=== PATIENT | female | born 1955 | race Caucasian/White ===

== ENCOUNTER 2017-12-05 05:33 | Inpatient (IN) ==
[2017-12-05] MEDS ORDERED: Chlorhexidine 4% Topical 120 APPLIC/120 ML Bottle TOPICAL SCH (06:00)
[2017-12-05] MEDS ORDERED: Vancomycin Inj 1,000 MG in Sodium Chlor 0.9% Inj 250 ML IV.SIG SCH (06:00)
[2017-12-05] MEDS ORDERED: Metoprolol Tartrate 25 MG Tablet PO ONE (06:04)
[2017-12-05] MEDS ORDERED: Chlorhexidine Gluconate 2% 1 Pack (2 Cloths) TOPICAL ONE (06:04)
[2017-12-05] MEDS ORDERED: Bupivacaine/Epinephrine 0.5% Inj 50 ML Vial ONE (06:58)
[2017-12-05] MEDS ORDERED: Sodium Chlor 0.9% Inj 500 ML IV.SIG SCH (07:00)
[2017-12-05] MEDS ORDERED: ceFAZolin 2 GM Premix Inj 2 GM/50 ML PIGGYBACK IV.SIG SCH (07:00)
[2017-12-05] MEDS ORDERED: Sodium Chlor 0.9% Inj 40 ML, Bupivacaine Liposo PF 1.3% Inj 20 ML P-ARTICULR SCH ×2 (07:30)
[2017-12-05] MEDS ORDERED: TRANEXAMIC ACID IV.SIG SCH (07:30)
[2017-12-05] MEDS ORDERED: Labetalol HCl Inj 100 MG/20 ML Vial IV.CONT ONE (07:30)
[2017-12-05] MEDS ORDERED: SODIUM CHLOR 0.9% IV.SIG SCH (07:30)
[2017-12-05] MEDS ORDERED: Lidocaine PF 1% Inj 5 ML Syringe OTHER ONE (07:30)
[2017-12-05] MEDS ORDERED: Post-op Orders (for Pharmacy) OTHER STA (09:08)
[2017-12-05] MEDS ORDERED: Bisacodyl 10 MG Supp RECTAL PRN (09:08)
--- NOTE | 2017-12-05 09:13 | P.OP ---
- Preoperative Diagnosis (1) Osteoarthritis of left hip - Postoperative Diagnosis (1) Osteoarthritis of left hip Date of procedure: 12/05/17 Procedure: Left total hip replacement arthroplasty, direct anterior exposure Anesthesia: GETA Surgeon: Faizan Rand MD Trouble Locater: ISABELLA Chambers Operation and Findings: EBL: 400 cc INDICATION: This patient presents with significant hip pain related to severe osteoarthritis of the left hip. The patient has had a previous right total hip replacement arthroplasty for the same condition on the contralateral hip.. Despite extensive conservative care this patient continues to be painful and now presents for surgical treatment. NOTE: Pennie Chambers PA-C was present for the entire surgical procedure as my middle school assistant principal. In my medical opinion her skill and care was necessary for the proper management of this patient. COMPONENTS: COMPANY: [employer] CUP: Ponce, 48 mm, 100 series, gription surface LINER: Altrx 32 mm, neutral STEM: Corail, standard offset, size 13, hydroxyapatite-coated HEAD: 32 mm, +1, ceramic, 12/14 taper PROCEDURE: This patient was brought to the operating room and anesthetized in the supine position and positioned on the fracture table with both legs held extended. The left hip and leg was scrubbed with alcohol followed by Hibiclens followed by ChloraPrep and draped sterilely. Antibiotics were given within routine time window and a timeout was done. A 4 inch incision was made starting 2 cm distal and 2 cm lateral to the anterior superior iliac spine. The fascia victor manuel was opened longitudinally. The interval between the fascia victor manuel and the rectus was opened down to the capsule of the hip joint. Retractors were positioned allowing good visualization of the capsule. This was opened longitudinally and flaps were created. Stay sutures were utilized. Exposure was excellent. The neck was cut at the proper location using fluoroscopy as a guide. The head was removed. Deep retractors were positioned allowing good visualization of the acetabulum. Acetabulum was deepened down to the floor starting with a proper size reamer and reaming up to 47 mm. A trial was utilized. Fluoroscopy was used to check position and confirmed satisfactory alignment. The rim was reamed with a 48 mm reamer and the final cup was positioned in approximately 20 of anteversion and 40-45 of abduction. Position was satisfactory. A single hole eliminator was positioned followed by the final liner. The lifting hook was utilized. The leg was dropped to the floor, maximally externally rotated and brought across the midline. Retractors were positioned. A box osteotome was utilized followed by progressive broaching to the proper stem size. Trial reduction showed excellent alignment and fit. With 60 of external rotation the leg was dropped to the floor without evidence of anterior subluxation. The wound was irrigated. The final stem was inserted and was found to be very stable. The final reduction using the final head. Stability was as previously noted. Intraoperative x-rays were taken. The wound was irrigated copiously. Hemostasis was controlled. Local anesthesia was utilized. The capsule was repaired with #2 Tycron sutures. The fascia victor manuel was repaired with running 0 PDS on a loop. Subcutaneous tissue was approximated with 2-0 Vicryl and skin with running intradermal 3-0 Vicryl followed by Steri-Strips. A sterile dressing was applied. The patient was awakened and taken to the recovery room in satisfactory condition. FINDINGS: There was severe osteoarthritis of the left hip with inflammatory changes. The final solution appeared excellent. There did not appear to be any complication.
[2017-12-05] MEDS ORDERED: Morphine Inj 4 MG/ML Vial ONE (09:41)
[2017-12-05] MEDS ORDERED: *Meperidine Inj 25 MG/ML Vial PERIprocedural Use ONLY ONE (09:41)
[2017-12-05] MEDS ORDERED: fentaNYL Citrate Inj 100 MCG/2 ML Ampul ONE ×2 (09:42)
[2017-12-05] MEDS ORDERED: *morphine SULFATE 4 MG/ML PERIprocedure ONLY ONE ×3 (09:47→10:04)
--- NOTE | 2017-12-05 10:04 | XR ---
EXAM DATE: 12/05/2017 9:50 AM EDT AGE/SEX: 62 years / Female INDICATIONS: Post-op left total hip arthroplasty. CLINICAL DATA: This is the patient's initial encounter. Patient reports that signs and symptoms have been present for 1 day and indicates a pain score of Nonresponsive. MEDICAL/SURGICAL HISTORY: Non-responsive. . Right total hip arthroplasty. COMPARISON: No prior exams available for comparison. FINDINGS: 3 intraoperative films submitted for interpretation. Patient's had a total hip arthroplasty in excell ent position. No complications. CONCLUSION: Status post total hip arthroplasty in excellent position Electronically signed by: Gonzalez Blackwell MD 12/05/2017 10:03 AM EDT
[2017-12-05] MEDS: Celecoxib 200 MG Capsule PO SCH (11:49)
[2017-12-05] MEDS: Morphine Inj 4 MG/ML Vial IV.PUSH PRN ×2 (14:10→21:18)
--- NOTE | 2017-12-05 17:49 | ECG ---
Date Performed: 12/05/2017 Time Performed: 06:24:12 PTAGE: 62 years EKG: Sinus rhythm Normal ECG NO PREVIOUS TRACING DOCTOR: Malia Franks Interpretating Date/Time 12/05/2017 17:44:33
[2017-12-05] MEDS ORDERED: Temazepam 15 MG Capsule PO PRN (21:00)
[2017-12-05] MEDS ORDERED: Melatonin 5 MG Tablet PO PRN (21:00)
[2017-12-05] MEDS: Multivitamin/Minerals Therapeutic Tablet PO SCH (21:12)
[2017-12-05] MEDS: Senna/Docusate Sodium 8.6/50 MG Tablet PO SCH (21:12)
[2017-12-06] MEDS: Morphine Inj 4 MG/ML Vial IV.PUSH PRN (01:10)
[2017-12-06 05:31] LABS: Hematocrit 29.3 % (35.0-46.0); Hemoglobin 9.8 gm/dL (11.6-15.3)
[2017-12-06] MEDS: Multivitamin/Minerals Therapeutic Tablet PO SCH (08:38)
[2017-12-06] MEDS: Celecoxib 200 MG Capsule PO SCH (08:39)
[2017-12-06] MEDS: Senna/Docusate Sodium 8.6/50 MG Tablet PO SCH (08:39)
[2017-12-06 08:57] VITALS: RESP 16
--- NOTE | 2017-12-06 13:46 | P.PNOP ---
Subjective Interval history: Doing well. Some pain left hip but well controlled. No new leg pain. No CP or SOB. Physical Exam Vital signs: Vital Signs 12/05/17 14:12 12/05/17 17:13 12/05/17 17:20 Temperature 99.1 F Pulse Rate 76 Respiratory Rate 18 24 18 Blood Pressure 106/60 Pulse Oximetry 98 12/05/17 20:00 12/05/17 22:16 12/05/17 23:03 Temperature 97.7 F 97.9 F Pulse Rate 72 81 Respiratory Rate 18 16 18 Blood Pressure 139/64 140/64 Pulse Oximetry 92 L 96 12/06/17 08:00 Temperature 98.7 F Pulse Rate 94 H Respiratory Rate 16 Blood Pressure 132/58 L Pulse Oximetry 95 Intake & Output 12/05/17 12/06/17 12/06/17 18:59 06:59 18:59 Intake Total 1655.53 / 1655.53 1680 / 1680 1000 / 1000 Output Total 250 / 250 Balance 1405.53 / 1405.53 1680 / 1680 1000 / 1000 Weight 55.3 kg Intake: IV 1455.53 / 1455.53 1200 / 1200 1000 / 1000 LR 1000 mL Inj 1,000 ML @ 80 1000 / 1000 1000 / 1000 mls/hr IV.CONT .[id number] [facility] Rx# :[id number] LR 1000 mL Inj 1,000 ML @ 30 1000 / 1000 mls/hr IV.SIG .Q24H [facility] Rx#: [id number] Cyklokapron Inj 553 MG In NS 105.53 / 105.53 Inj 100 ML @ 200 mls/hr IV.SIG ONCE [facility] Rx#:[id number] Vancomycin Inj 1,000 MG In NS 250 / 250 Inj 250 ML @ 250 mls/hr IV.SIG [employer] [facility] Rx#:[id number] Ancef Inj 1,000 MG In NS Inj 100 / 100 200 / 200 100 ML @ 200 mls/hr IV.SIG Q6H [facility] Rx#:[id number] Oral 480 / 480 Anesthesia Amount 200 / 200 Output: Estimated Blood Loss 250 / 250 Other: # Voids 0 3 Date of Last Bowel Movement 12/05/17 # Bowel Movements 0 Narrative: Laying in bed at bedside NAD LLE Hip dressing c/d/i, no drainage, mild swelling, no erythema +motor at, +sens, +nvi Neg homans Results - Labs CBC & Chem 7: 12/06/17 03:52 Laboratory Results - last 24 hr 12/06/17 03:52 Hgb 9.8 L Hct 29.3 L - Procedures Left RHEA, anterior approach Assessment and Plan - Ortho Post Op Day # 1 - Assessment and Plan pod#1 s/p L RHEA, anterior Doing well. Pain controlled. Ok to d/c home w c today. PO pain meds as needed. ASA 81mg PT - WBAT LLE. Anterior RHEA precautions. Hold dressing changes unless saturated. F/U in 2 weeks as scheduled.
--- NOTE | 2017-12-06 13:48 | P.DCO ---
- Physical Therapy Physical Therapy: Safety evaluation Hip: Total hip, Protocol: Left, Progress to weight bearing Additional instructions: PT 3-4 times a week for 2 weeks. WBAT Left LE. Anterior RHEA precautions. - Nursing RN days per week: 2 x week(s): 1 Dressing changes: Do not change dressing Additional instructions: Vitals assessment. Hold dressing changes unless saturated. - Certification Need for Home Health services: I have seen patient Shelly Stephens on 12/06/17. My clinical findings support the need for the requested home health care services because: Need for Home Health Services: Deconditioned with increased weakness, Limited ability to care for self, High risk of falls Homebound Certification: I certify that my clinical findings support that this patient is homebound because: Homebound Certification: Post-op weakness, Unsteady gait/balance
[2017-12-06 14:04] VITALS: BP 128/62; PULSE 103; TEMP 97.8; O2SAT 94
--- NOTE | 2017-12-06 22:08 | P.DS ---
Date of admission: 12/05/17 05:33 Primary care physician: Jinny Lamas Attending physician on discharge: Faizan Rand Anticipated date of discharge: 12/06/17 DS: Diagnosis - Discharge Diagnosis (1) Osteoarthritis of left hip Status: Chronic DS: Medications - Discharge Medications Prescriptions: aspirin 81 mg PO BID 30 Days #60 tab hydrocodone-acetaminophen 1 tab PO Q4H PRN 42 Days tab PRN Reason: Pain DS: Summary Hospital Course: Surgical treatment was performed on the day of admission without complication. She recovered well in PACU and was transferred to the orthopaedic floor. Pain was controlled with IV and oral medications. She was compliant with all total hip precautions and home exercises. After 1 day she was found to be stable and discharged home with home health care. She was instructed to continue her physical therapy, ice the operative site twice daily and to pursue a high fiber diet. She was given prescriptions for norco and aspirin. - Time Spent with Patient Total time spent providing and/or coordinating discharge services: Greater than 30 minutes - Quality: VTE Deep Vein Thrombosis/Pulmonary Embolism Present on Admission: No Exam Vital signs: Vital Signs 12/05/17 22:16 12/05/17 23:03 12/06/17 08:00 Temperature 97.9 F 98.7 F Pulse Rate 81 94 H Respiratory Rate 16 18 16 Blood Pressure 140/64 132/58 L Pulse Oximetry 96 95 12/06/17 12:00 Temperature 97.8 F Pulse Rate 103 H Respiratory Rate 16 Blood Pressure 128/62 Pulse Oximetry 94 L Intake & Output 12/06/17 12/06/17 12/07/17 06:59 18:59 06:59 Intake Total 1680 / 1680 1000 / 1000 Balance 1680 / 1680 1000 / 1000 Weight 55.3 kg Intake: IV 1200 / 1200 1000 / 1000 LR 1000 mL Inj 1,000 ML @ 80 1000 / 1000 1000 / 1000 mls/hr IV.CONT .[id number] [facility] Rx# :[id number] Ancef Inj 1,000 MG In NS Inj 200 / 200 100 ML @ 200 mls/hr IV.SIG Q6H [facility] Rx#:[id number] Oral 480 / 480 Other: # Voids 3 Date of Last Bowel Movement 12/05/17 # Bowel Movements 0 Results Procedures completed during hospitalization: Left RHEA, anterior approach Labs on day of discharge: Labs from last 24 hours 12/06/17 03:52 Hgb 9.8 L Hct 29.3 L - Impressions ITS Impressions Hip X-Ray 12/05/17 00:00 CONCLUSION: Status post total hip arthroplasty in excellent position Discharge Plan - Discharge Disposition Patient Disposition: Disch W/Home Health Service - Discharge Condition Condition: Good - Discharge Order Discharge Orders: Discharge Order (Routine); Ordered 12/06/17 Ordered By: Faizan Rand - Physicians Team Primary Care Provider: Jinny Lamas Attending Provider: Faizan Rand Other Providers: [facility],Agency - Rxs /Orders / Referrals /Forms Prescriptions: New aspirin 81 mg Tablet,Chewable 81 mg PO BID 30 Days Qty: 60 RF: 0 hydrocodone-acetaminophen 7.5-325 mg Tablet 1 tab PO Q4H PRN (Reason: Pain) 42 Days RF: 0 Continue acetaminophen [Tylenol Extra Strength] 500 mg Tablet 1,000 mg PO Q6-12H PRN (Reason: Acute Pain) [id number] 333-133-5 mg Tablet 2 tab PO DAILY celecoxib [Celebrex] 200 mg Capsule 200 mg PO DAILY melatonin 10 mg Tablet 10 mg PO HS PRN (Reason: Insomnia) [id number]-jfr-eajf-FA-lutein [Centrum Silver Women] 8 mg iron-400 mcg-300 mcg Tablet 1 tab PO DAILY rosuvastatin 10 mg Tablet 10 mg PO DAILY Ambulatory Orders / Order Sets / DME: Adjustable Commode 3-in-1 (1 each) (Routine) Location: Determined by Patient Ordered By: Faizan Rand Walker With Front Wheels (1 each) (Routine) Location: Determined by Patient Ordered By: Faizan Rand Referrals: Jinny Lamas MD [Primary Care Provider] - See Instructions - Discharge Instructions Patient Printed Instructions: Aspirin (By mouth), Narcotic Pain Management (DC) , Precautions after Total Joint Replacement Surgery (ED), Fall Prevention (DC), Total Hip Replacement (DC) Additional Instructions: Take or make your follow up appointments as directed by your providers. Take medications as directed, especially medications to prevent post surgical blood clots. Maintain hip precautions as directed. - Post Discharge Care Plan Care Plan Goals: Discharge Care Plan Goals for LEFT Total Hip Replacement, Anterior approach You had a hip replacement surgery. This means your natural hip was replaced with an artificial joint (prosthesis). You may be recovering at home or in a rehabilitation facility. Either way, you must take care of your new hip. Here are some goals to help you heal well. Directions to Meet your Goals: 1. Activity & Exercises: * Take pain medicine as directed by your doctor. * Dont drive until your doctor says its OK. And never drive while taking opioid pain medicine. * Wear the support stockings you were given in the hospital as directed by your surgeon. * Dont sit for more than 30 to 45 minutes at one time. * Dont lean forward while sitting. * Dont cross your legs. * Keep your feet flat on the floor. Dont turn your foot or leg inward. This stresses your hip joint. * Use an elevated toilet seat for 6 weeks after surgery. * Nap if you are tired, but dont stay in bed all day. * Sit on a firm cushion when you ride in a car and avoid sitting too low. Try not to bend your hip too much when getting in and out of the car. 2. Prevent Falls/Injury: * Follow your doctors orders regarding how much weight to put on the affected leg. * Dont bend at the hip when you bend over. Don't bend at the waist to put on socks and shoes. And avoid picking up items from the floor. * Use a cane, crutches, a walker, or handrails until your balance, flexibility, and strength improve. And remember to ask for help from others when you need it. * Free up your hands so that you can use them to keep balance. Use a rhonda pack , apron, or pockets to carry things. * Arrange your household to keep the items you need handy. Keep everything else out of the way. * Remove items that may cause you to fall, such as throw rugs and electrical cords. * Use nonslip bath mats, grab bars, an elevated toilet seat, and a shower chair in your bathroom * Sit on a shower stool or chair when you shower to keep from falling. 3. Precautions: * Prevent infection. Any infection will need to be treated immediately. Call your doctor right away if you think you might have an infection. * Tell your dentist that you have an artificial joint and take antibiotics as prescribed before any dental work. * Tell all your healthcare providers about your artificial joint before any medical procedure. * Maintain a healthy weight. Get help to lose any extra pounds. Added body weight puts stress on the joints. 4. Incision Care: * Prevent infection by washing your hands often. If an infection occurs, it will need to be treated right away. * Call your doctor right away if you think you may have an infection. Symptoms include a fever or an incision that leaks white, green, or yellow fluid. * Don't soak your incision in water until your doctor says its OK. This means no hot tubs, bathtubs, or swimming pools. * Follow your doctor's instructions for changing the dressing. * Dont rub the incision, or apply creams or lotions to it. * If you notice any redness or drainage around the bandage site, contact your surgeon's office immediately. 5. Follow-Up: Do Not miss your follow-up appointment. Keep up with all your appointments and yearly check ups When to call your doctor: Call your doctor right away if you have: Hip pain gets worse Pain or swelling in your calf or leg not related to your incision Tenderness or redness in your calf Fever of 100.4F (38C) or higher, or as directed by your healthcare provider Shaking chills Swelling or redness at the incision site gets worse Fluid draining from the incision Call 911: Call 911 right away if you have: Chest pain Shortness of breath Any pain or tenderness in your calf
== END 2017-12-06 15:05 | disposition home health service (06) ==
LOC: HSDI 05:33 → N06 11:34
PROVIDERS: ADMIT Orthopaedic Surgery Orthopaedic Surgery of the Spine; ATTEND Orthopaedic Surgery Orthopaedic Surgery of the Spine